=== PATIENT | female | born 1990 | race African-American/Black ===

== ENCOUNTER 2021-12-02 11:15 | Emergency (ER) | payer OTHER ==
[2021-12-02 11:23] VITALS: TEMP 98.8; BMI 28.7
[2021-12-02] MEDS ORDERED: LACTATED RINGERS SOLUTION 1000 ML INFUS.BAG IV ONE ×2 (12:00→14:26)
[2021-12-02] MEDS ORDERED: ACETAMINOPHEN 1000 MG/100 ML BAG IVPB ONE (12:09)
[2021-12-02] MEDS ORDERED: ONDANSETRON 4 MG/2 ML VIAL IVPUSH ONE (12:09)
[2021-12-02] MEDS ORDERED: ONDANSETRON 4 MG/2 ML VIAL ONE (12:14)
[2021-12-02] MEDS ORDERED: ACETAMINOPHEN INJECTION 100 ML IVPB ONE (12:14)
[2021-12-02 12:35] LABS: ALBUMIN 3.5 g/dl (3.4-5.0); BILIRUBIN,TOTAL 0.4 mg/dl (0.2-1); CALCIUM 8.9 mg/dl (8.5-10); CREATININE 0.6 mg/dl (0.55-1.3); TOT PROT 6.7 g/dl (6.4-8.2)
[2021-12-02 12:42] LABS: EPITHELIAL CELLS RARE /hpf
[2021-12-02 13:49] LABS: BASO % 0.2 % (0-2.0); EOS % 0.7 % (0-4.5); HEMATOCRIT 33.9 % (32.4-45.2); HEMOGLOBIN 11.2 GM/dL (10.7-15.3); MCH 28.2 pg (25.7-33.7); MCHC 33.1 g/dl (32.0-36.0); MEAN CELL VOLUME 85.1 fl (80-96); MEAN PLT VOLUME 9.1 fl (7.5-11.1); MONO % 7.5 % (3.8-10.2); NEUT % 75.6 % (42.8-82.8); PLATELET COUNT 310 10^3/uL (134-434); RBC 3.98 M/mm3 (3.60-5.2); RDW 13.8 % (11.6-15.6); WHITE BLOOD COUNT 12.5 K/mm3 (4.0-10.0)
[2021-12-02] MEDS ORDERED: METOCLOPRAMIDE HCL INJECTION 10 MG/2 ML VIAL IVPUSH ONE (14:24)
[2021-12-02] MEDS ORDERED: METOCLOPRAMIDE HCL INJECTION 10 MG/2 ML VIAL ONE (14:27)
[2021-12-02 18:57] VITALS: BP 119/78; PULSE 78
== END 2021-12-02 18:55 | disposition home or self-care (01) ==
LOC: FER 11:15
PROC: 3E0333Z Introduction of Anti-inflammatory into Peripheral Vein, Percutaneous Approach (ICD-10-PCS; principal; 2021-12-02)
PROC: 3E033GC Introduction of Other Therapeutic Substance into Peripheral Vein, Percutaneous Approach (ICD-10-PCS; 2021-12-02)
PROC: 3E033GC Introduction of Other Therapeutic Substance into Peripheral Vein, Percutaneous Approach (ICD-10-PCS; 2021-12-02)
PROC: 3E033GC Introduction of Other Therapeutic Substance into Peripheral Vein, Percutaneous Approach (ICD-10-PCS; 2021-12-02)
DX: O21.0 Mild hyperemesis gravidarum (principal); O26.851 Spotting complicating pregnancy, first trimester; Z3A.09 9 weeks gestation of pregnancy
CPT/HCPCS: 36415; 80053; 81003; 81015; 85025; 87086; 93005; 99284-25; J0131

== ENCOUNTER 2022-01-16 06:44 | Emergency (ER) | payer OTHER ==
[2022-01-16 07:00] VITALS: BP 111/74; PULSE 100; TEMP 97.6; BMI 28.7
[2022-01-16] MEDS ORDERED: SODIUM CHLORIDE 0.9% 500 ML INFUS.BAG IV ONE (07:30)
[2022-01-16] MEDS ORDERED: ACETAMINOPHEN 1000 MG/100 ML BAG IVPB ONE (07:30)
[2022-01-16] MEDS ORDERED: FAMOTIDINE 20 MG/50 ML IVPB 20 MG/50 ML MG IVPB ONE ×2 (07:30→07:57)
[2022-01-16] MEDS ORDERED: ONDANSETRON 4 MG/2 ML VIAL IVPUSH ONE (07:31)
[2022-01-16] MEDS ORDERED: ACETAMINOPHEN INJECTION 100 ML IVPB ONE (07:57)
[2022-01-16] MEDS ORDERED: ONDANSETRON 4 MG/2 ML VIAL ONE (07:57)
[2022-01-16 08:07] LABS: BASO % 0.2 % (0-2.0); HEMATOCRIT 32.3 % (32.4-45.2); HEMOGLOBIN 11.5 GM/dL (10.7-15.3); LYMPH % 14.1 % (8-40); MCH 29.8 pg (25.7-33.7); MCHC 35.5 g/dl (32.0-36.0); MEAN CELL VOLUME 83.9 fl (80-96); MEAN PLT VOLUME 8.7 fl (7.5-11.1); MONO % 11.2 % (3.8-10.2); NEUT % 73.5 % (42.8-82.8); PLATELET COUNT 239 10^3/uL (134-434); RBC 3.85 M/mm3 (3.60-5.2); RDW 13.9 % (11.6-15.6); WHITE BLOOD COUNT 9.1 K/mm3 (4.0-10.0)
[2022-01-16 08:30] LABS: CALCIUM 8.6 mg/dL (8.5-10.1)
[2022-01-16 08:31] LABS: ALBUMIN 2.9 g/dl (3.4-5.0); BLOOD UREA NITROGEN 5.4 mg/dL (7-18)
[2022-01-16 08:34] LABS: CREATININE 0.5 mg/dL (0.55-1.3)
[2022-01-16 08:35] LABS: BILIRUBIN,TOTAL 0.2 mg/dL (0.2-1); TOT PROT 6.5 g/dl (6.4-8.2)
[2022-01-16 09:42] LABS: ACTIVATED PTT 31.2 SECONDS (25.2-36.5); INR 1.04 (0.83-1.09)
[2022-01-16 11:10] LABS: URINE APPEARANCE CLEAR; URINE BILIRUBIN NEGATIVE (NEGATIVE); URINE COLOR YELLOW; URINE GLUCOSE (UA) NEGATIVE (NEGATIVE); URINE KETONE NEGATIVE (NEGATIVE); URINE LEUK ESTERASE NEGATIVE (NEGATIVE); URINE NITRITE NEGATIVE (NEGATIVE); URINE PROTEIN NEGATIVE (NEGATIVE); URINE UROBILINOGEN 0.2 mg/dL (0.2-1.0)
[2022-01-16] MEDS ORDERED: MAG HYDROX/AL HYDROX/SIMETH -MYLANTA- ORAL SUSPENSION PO ONE (12:24)
[2022-01-16] MEDS ORDERED: MAG HYDROX/AL HYDROX/SIMETH 30 ML UNIT-DOSE CUP ONE (12:28)
== END 2022-01-16 12:47 | disposition home or self-care (01) ==
LOC: JER 06:44
PROC: 3E033GC Introduction of Other Therapeutic Substance into Peripheral Vein, Percutaneous Approach (ICD-10-PCS; principal; 2022-01-16)
DX: O99.612 Diseases of the digestive system complicating pregnancy, second trimester (principal); K21.9 Gastro-esophageal reflux disease without esophagitis; Z3A.16 16 weeks gestation of pregnancy
CPT/HCPCS: 36415; 76700-TC; 76815-TC; 80053; 81003; 83690; 84484; 84702; 85025; 85610; 85730; 86850; 86900; 86901; 87086; 93005; 93010; 99285-25